=== PATIENT | female | born 1960 | race Caucasian/White ===

== ENCOUNTER 2020-03-10 14:41 | Inpatient (IN) | payer OTHER ==
--- NOTE | 2020-03-10 15:03 | PDOC ---
Rapid Medical Evaluation Chief Complaint: Urinary Problem Time Seen by Provider: 03/10/20 14:52 Medical Evaluation: Allergies Allergy/AdvReac Type Severity Reaction Status Date / Time morphine Allergy Severe RASH,HIVES Verified 08/12/15 15:41 Sulfa (Sulfonamide Allergy Verified 08/12/15 15:41 Antibiotics) hydromorphone HCl AdvReac Intermediate NAUSEA/Vomi Verified 08/12/15 16:31 [From Dilaudid] ting SNAPPLE Allergy Severe Hives,RASH, Uncoded 08/12/15 15:41 VOMITING 03/10/20 15:00 I have performed a brief in-person evaluation of this patient. The patient presents with a chief complaint of: h/o left breast CA , kidney stones, chronics back pain on percocets and flexiril and does not recall any other medication problem present with 3 days of b/l flank pain and fever x 3 days. pt also report intermittent SOB. Denies N/V,dizziness. Pertinent physical exam findings:b/l flanks pain. right CVAT. fever I have ordered the following: CBC, CMP, UA, spiral CT, sepsis labs The patient will proceed to the ED for further evaluation. Discharge Disposition - Diagnosis Flank pain, acute, Fever and chills - Discharge Dispostion Condition at time of disposition: Stable - Referrals - Patient Instructions - Post Discharge Activity
[2020-03-10 15:53] LABS: BASO % 0.4 % (0-2.0); EOS % 0.2 % (0-4.5); HEMATOCRIT 38.9 % (32.4-45.2); HEMOGLOBIN 12.3 GM/dL (10.7-15.3); LYMPH % 12.6 % (8-40); MCH 28.3 pg (25.7-33.7); MCHC 31.7 g/dl (32.0-36.0); MEAN CELL VOLUME 89.2 fl (80-96); MEAN PLT VOLUME 10.5 fl (7.5-11.1); MONO % 9.9 % (3.8-10.2); NEUT % 76.9 % (42.8-82.8); PLATELET COUNT 204 K/MM3 (134-434); RBC 4.36 M/mm3 (3.60-5.2); RDW 13.2 % (11.6-15.6); WHITE BLOOD COUNT 8.3 K/mm3 (4.0-10.0)
[2020-03-10] MEDS ORDERED: ACETAMINOPHEN 1000 MG/100 ML VIAL (NON FORMULARY) IVPB ONE (15:54)
[2020-03-10] MEDS ORDERED: SODIUM CHLORIDE 1,000 ML IV STA (15:55)
[2020-03-10] MEDS ORDERED: ACETAMINOPHEN INJECTION 100 ML IVPB ONE (15:56)
[2020-03-10 15:58] LABS: INR 1.04 (0.83-1.09); PROTHROMBIN TIME (PATIENT) 12.3 SEC (9.7-13.0)
[2020-03-10 16:02] LABS: ACTIVATED PTT 29.6 SECONDS (25.2-36.5)
[2020-03-10 16:10] LABS: ALBUMIN 3.4 g/dl (3.4-5.0); BILIRUBIN,TOTAL 0.4 mg/dL (0.2-1); BLOOD UREA NITROGEN 14.2 mg/dL (7-18); CALCIUM 8.9 mg/dL (8.5-10.1); CREATININE 0.8 mg/dL (0.55-1.3); POTASSIUM 4.4 mmol/L (3.5-5.1); TOT PROT 7.4 g/dl (6.4-8.2)
[2020-03-10 16:15] LABS: VENOUS BASE EXCESS 0.9 mmol/L (-2-2); VENOUS O2 SATURATION 29.5 % (70-80); VENOUS PCO2 45.8 mmHg (38-52); VENOUS PH 7.379 (7.310-7.410)
[2020-03-10 16:49] LABS: PH,URINE 5.5 (5.0-8.0); URINE APPEARANCE CLEAR; URINE BILIRUBIN NEGATIVE (NEGATIVE); URINE COLOR YELLOW; URINE GLUCOSE (UA) NEGATIVE (NEGATIVE); URINE KETONE NEGATIVE (NEGATIVE); URINE LEUK ESTERASE 2+ (NEGATIVE); URINE NITRITE NEGATIVE (NEGATIVE); URINE PROTEIN 1+ (NEGATIVE)
[2020-03-10] MEDS ORDERED: CEFTRIAXONE 1,000 MG in DEXTROSE 5%-WATER - 50 ML IVPB ONE (17:20)
--- NOTE | 2020-03-10 17:31 | PDOC ---
History of Present Illness - General Chief Complaint: Urinary Problem Stated Complaint: KIDNEY PAIN Time Seen by Provider: 03/10/20 14:52 - History of Present Illness Initial Comments: 59 YOF h/o breast cancer, multiple kidney stones, and chronic back pain presents with bilateral flank pain, CVA tenderness, fever, chills, and night sweats for 3 days duration. Patient reports that pain is primarily localized to left flank, 8/10 in intensity, aching/ dull in quality, radiates to RLQ during urination, and is not relieved by taking ibuprofen. Also reports that pain limits inspiration causing her some intermittent SOB. Last bowel movement was this AM. Able to produce urine. Denies blood in urine. Denies CP, N/V/D. Past History - Medical History Allergies/Adverse Reactions: Allergies Allergy/AdvReac Type Severity Reaction Status Date / Time morphine Allergy Severe RASH,HIVES Verified 03/10/20 15:00 Sulfa (Sulfonamide Allergy Verified 03/10/20 15:00 Antibiotics) hydromorphone HCl AdvReac Intermediate NAUSEA/Vomi Verified 03/10/20 15:00 [From Dilaudid] ting SNAPPLE Allergy Severe Hives,RASH, Uncoded 03/10/20 15:00 VOMITING Home Medications: Ambulatory Orders Cyclobenzaprine HCl [Flexeril -] 10 mg PO HS PRN 10/01/12 Oxycodone HCl/Acetaminophen [Percocet 5-325 mg Tablet] 1 - 2 combo PO Q4H PRN #20 tablet 12/09/13 Anemia: Yes (HAD BLOOD TRANSFUSION) Asthma: No Cancer: Yes (Lt breast (monitoring)) Cardiac Disorders: No CVA: No COPD: No CHF: No Dementia: No Diabetes: No GI Disorders: No Disorders: Yes (KIDNEY STONES) HTN: No Hypercholesterolemia: No Kidney Stones: Yes Liver Disease: No Seizures: No Thyroid Disease: No - Surgical History Abdominal Surgery: No Appendectomy: No Cardiac Surgery: No Cholecystectomy: No Lung Surgery: No Neurologic Surgery: No Orthopedic Surgery: Yes (LEFT KNEE SX 04/30/12) - Psycho-Social/Smoking History Smoking Status: No Smoking History: Never smoked Have you smoked in the past 12 months: No Number of Cigarettes Smoked Daily: 0 - Substance Abuse Hx (Audit-C & DAST Scrn) How often the patient has a drink containing alcohol: Never Score: In Men: 4 or > Positive; In Women: 3 or > Positive: 0 Screen Result (Pos requires Nsg. Audit-10AR): Negative In the last yr the pt used illegal drug/Rx for NonMed reason: No Score: Yes response is considered Positive: 0 Screen Result (Positive result requires Nsg. DAST-10): Negative Review of Systems - Review of Systems Constitutional: Yes: See HPI HEENTM: Yes: See HPI Respiratory: Yes: See HPI Cardiac (ROS): Yes: See HPI ABD/GI: Yes: See HPI : Yes: See HPI Musculoskeletal: Yes: See HPI Integumentary: Yes: See HPI Neurological: Yes: See HPI Endocrine: Yes: See HPI Hematologic/Lymphatic: Yes: See HPI *Physical Exam - Vital Signs Last Vital Signs Temp Pulse Resp BP Pulse Ox 101.3 F H 98 H 18 134/94 99 03/10/20 15:00 03/10/20 15:00 03/10/20 15:00 03/10/20 15:00 03/10/20 15:00 - Physical Exam General Appearance: Yes: Moderate Distress, Thin Respiratory/Chest: positive: Lungs Clear, Normal Breath Sounds Cardiovascular: positive: Regular Rhythm, Regular Rate, S1, S2 Gastrointestinal/Abdominal: positive: Normal Bowel Sounds, Tender, Guarding Musculoskeletal: positive: CVA Tenderness Integumentary: positive: Warm ED Treatment Course - LABORATORY CBC & Chemistry Diagram: 03/10/20 15:30 03/10/20 15:30 - ADDITIONAL ORDERS Additional order review: Laboratory Results 03/10/20 03/10/20 03/10/20 16:10 15:30 15:30 PT with INR INR PTT (Actin FS) VBG pH 7.379 POC VBG pCO2 45.8 POC VBG pO2 19.4 L VBG HCO3 26.4 VBG O2 Sat (Sridhar) 29.5 L VBG Base Excess 0.9 Sodium Potassium Chloride Carbon Dioxide Anion Gap BUN Creatinine Est GFR (CKD-EPI)AfAm Est GFR (CKD-EPI)NonAf Random Glucose Lactic Acid 0.8 Calcium Total Bilirubin AST ALT Alkaline Phosphatase Total Protein Albumin Urine Color Yellow Urine Appearance Clear Urine pH 5.5 Ur Specific [place] 1.013 Urine Protein 1+ H Urine Glucose (UA) Negative Urine Ketones Negative Urine Blood 2+ H Urine Nitrite Negative Urine Bilirubin Negative Urine Urobilinogen 1.0 Ur Leukocyte Esterase 2+ H 03/10/20 03/10/20 15:30 15:30 PT with INR 12.30 INR 1.04 PTT (Actin FS) 29.6 VBG pH POC VBG pCO2 POC VBG pO2 VBG HCO3 VBG O2 Sat (Sridhar) VBG Base Excess Sodium 135 L Potassium 4.4 Chloride 102 Carbon Dioxide 29 Anion Gap 4 L BUN 14.2 Creatinine 0.8 Est GFR (CKD-EPI)AfAm 94.19 Est GFR (CKD-EPI)NonAf 81.27 Random Glucose 104 Lactic Acid Calcium 8.9 Total Bilirubin 0.4 AST 18 ALT 22 Alkaline Phosphatase 93 Total Protein 7.4 Albumin 3.4 Urine Color Urine Appearance Urine pH Ur Specific [place] Urine Protein Urine Glucose (UA) Urine Ketones Urine Blood Urine Nitrite Urine Bilirubin Urine Urobilinogen Ur Leukocyte Esterase 03/10/20 15:30 RBC 4.36 MCV 89.2 MCHC 31.7 L RDW 13.2 MPV 10.5 Neutrophils % 76.9 Lymphocytes % 12.6 D Monocytes % 9.9 D Eosinophils % 0.2 Basophils % 0.4 - Medications Given in the ED: ED Medications Discontinued Medications Generic Name Dose Route Start Last Admin Trade Name Freq PRN Reason Stop Dose Admin Acetaminophen 1,000 mg 03/10/20 15:54 03/10/20 15:57 Ofirmev Injection - IVPB 03/10/20 15:55 1,000 mg ONCE ONE Administration Sodium Chloride 1,000 mls @ 1,000 mls/hr 03/10/20 15:55 03/10/20 15:57 Normal Saline - IV 03/10/20 16:54 1,000 mls/hr ASDIR STA Administration Medical Decision Making - Medical Decision Making This is a 59 YOF h/o Breast Ca, kidney stones, and chronic back pain presenting with bilateral flank pain, fever, chills and night sweats of 3 days duration. Patients was febrile to 101.3 w/ HR 98 on arrival. Exam notable for slightly rigid abdomen TTP, guarding, suprapubic tenderness, and bilateral CVA tenderness. Patient presents with 2 SIRS criteria (HR 98 and T 101.3). Vital Signs Temp Pulse Resp BP Pulse Ox 98.8 F 70 18 101/73 98 03/10/20 17:40 03/10/20 17:26 03/10/20 15:00 03/10/20 17:26 03/10/20 17:26 DDx Ibnlt: Presumptive ddx is pyelonephritis w/ w/o urosepsis. Differential incl udes kidney stones and appendicitis. Less concerned about SBO given still passing stool and gas, less concerned about MT given alternate diagnosis more likely. Plan: Ordered CBC, CMP, UA, CXR, CT abdomen, and blood cultures. Gave 1g tylenol, 1L fluids, and 1g ceftriaxone. Pain control pending CT results. Reassess: Labs were unremarkable. Patient has 2+ positive leuk esterase, lactate .8. CXR negative, CT revealing of small non obstructive left renal stones, no ureteral stones seen. Gave 15mgs Toradol. Dispo: Will admit patient to medicine for management of pyelonephritis + sepsis. Discharge - Discharge Information Problems reviewed: Yes Clinical Impression/Diagnosis: Flank pain, acute, Fever and chills, Pyelonephritis, Systemic inflammatory response syndrome (SIRS) Sepsis Qualifiers: Sepsis type: sepsis due to unspecified organism Sepsis acute organ dysfunction status: unspecified Qualified Code(s): A41.9 - Sepsis, unspecified organism Condition: Stable - Admission Yes - Follow up/Referral Referrals: Romario Hamilton MD [Primary Care Provider] - - Patient Discharge Instructions - Post Discharge Activity
[2020-03-10 17:35] LABS: URINE RBC 78.7 /uL (0-23.9); URINE WBC 327.1 /uL (0-25.8)
[2020-03-10 17:36] LABS: EPI CELLS 1.5 /uL (0-25.1); HYALINE CASTS 2.44 /uL (0-3.1); URINE BACTERIA 31618.4 /uL (0-1359)
[2020-03-10] MEDS ORDERED: KETOROLAC TROMETHAMINE 15 MG/ML VIAL IVPUSH ONE (17:49)
--- NOTE | 2020-03-10 17:58 | PDOC ---
Documentation entered by Luciano Cantu SCRIBE, acting as scribe for Sandra Carranza MD. Sandra Carranza MD: This documentation has been prepared by the Peter lopez Nirvannie, SCRIBE, under my direction and personally reviewed by me in its entirety. I confirm that the documentation accurately reflects all work, treatment, procedures, and medical decision making performed by me. Attending Attestation - Resident Resident Name: Antoni Moser - ED Attending Attestation I have performed the following: I have examined & evaluated the patient, The case was reviewed & discussed with the resident, I agree w/resident's findings & plan, Exceptions are as noted - HPI HPI: 03/10/20 17:35 The patient is a 59 year old female with a significant past medical history of left breast cancer, renal lithiasis, chronic back pain (on Percocet and Flexeril), and s/p uterine ablation who presents to the ED with 3 days of dysuria with associated 8/10 bilateral flank pain and fevers. Patient describes her flank pain as an achy, dull sensation worsening with inspiration and nausea without vomiting. She notes taking Ibuprofen for her symptoms, without relief, prompting her arrival to the ED. Patient was recently in physical rehab from Aug-Oct after a fall with hip dislocation. She denies any recent vomiting, or diarrhea. Allergies: As per nursing notes. Primary Care Physician: Dr. Joey Hamilton - Physicial Exam PE: 03/10/20 17:48 awake alert lungs clear bilat heart rrrno mrg abd soft right mid upper quad ttp, no rebound no guarding. left cva tenderenss. no suprapubic ttp. no rebound no guarding. ext wwp.. nuero alert oriented x 3. - Medical Decision Making 03/10/20 17:52 59 yo F with h/o chronic back pain breast ca, anemia, recent hip dislocation requiring rehab 08/2019, uterine ablation here with c/o fever x 3 days, back pain nausea. differential pyelo, uti, appy, bayron, viral syndrome. plan labs ivf tylenl for fever. ct renal stone protocol ordered r/o infected stone. ua ua positive for uti/ pyelo. given ceftriaxone, tylenoland toradol for pain. will admit. Discharge - Discharge Information Problems reviewed: Yes Clinical Impression/Diagnosis: Flank pain, acute, Fever and chills, Pyelonephritis Condition: Stable - Admission Yes - Follow up/Referral - Patient Discharge Instructions - Post Discharge Activity
[2020-03-10] MEDS ORDERED: KETOROLAC TROMETHAMINE 15 MG/ML VIAL ONE (18:01)
--- NOTE | 2020-03-10 20:37 | HP ---
Admitting History and Physical - Primary Care Physician PCP: Romario Hamilton - Admission Chief Complaint: Flank Pain, Fever History of Present Illness: This is a 59 y/o female with a PMHx of Renal Calculi (Lithotripsy), Anemia, Chronic Back Pain. Who presents to the ED with bilateral flank pain, subjective fever 101-103, diaphoresis x 2 days. Patient reports having dysuria last week, noting her urine was dark yellow. Patient reports having frequency. Patient denies chills, cough, SOB, dizziness, SARGENT, CP, palpitations, N/V/D, constipation, melena, hematochezia. Patient denies sick contacts or recent travel. History Source: Patient Limitations to Obtaining History: No Limitations - Past Medical History Renal/: Yes: Renal Calculi Heme/Onc: Yes: Anemia Musculoskeletal: Yes: Chronic low back pain - Smoking History Smoking history: Never smoked Have you smoked in the past 12 months: No Aproximately how many cigarettes per day: 0 - Alcohol/Substance Use Hx Alcohol Use: No History of Substance Use: reports: None - Social History Usual Living Arrangement: Yes: With Child (grandchildren) ADL: Independent History of Recent Travel: No Home Medications - Allergies Allergies/Adverse Reactions: Allergies Allergy/AdvReac Type Severity Reaction Status Date / Time morphine Allergy Severe RASH,HIVES Verified 03/10/20 15:00 Sulfa (Sulfonamide Allergy Verified 03/10/20 15:00 Antibiotics) hydromorphone HCl AdvReac Intermediate NAUSEA/Vomi Verified 03/10/20 15:00 [From Dilaudid] ting SNAPPLE Allergy Severe Hives,RASH, Uncoded 03/10/20 15:00 VOMITING - Home Medications Home Medications: Ambulatory Orders Cyclobenzaprine HCl [Flexeril -] 10 mg PO HS PRN 10/01/12 Oxycodone HCl/Acetaminophen [Percocet 5-325 mg Tablet] 1 - 2 combo PO Q4H PRN #20 tablet 12/09/13 Family Medical History Family Hx Cancer: Grandmother (maternal) (Breast), Mother (Breast), Sister (Breast) Other Family History: Aunt- Breast Ca Review of Systems - Review of Systems Constitutional: reports: Fever Eyes: reports: No Symptoms HENT: reports: No Symptoms Neck: reports: No Symptoms Cardiovascular: reports: No Symptoms Respiratory: reports: No Symptoms Gastrointestinal: reports: No Symptoms Genitourinary: reports: Burning, Dysuria, Flank Pain Breasts: reports: No Symptoms Reported Musculoskeletal: reports: Back Pain Integumentary: reports: No Symptoms Neurological: reports: No Symptoms Endocrine: reports: No Symptoms Hematology/Lymphatic: reports: No Symptoms Psychiatric: reports: No Symptoms Pain Intensity: 7 Physical Examination Vital Signs: Vital Signs Temperature 98.8 F 03/10/20 17:40 Pulse Rate 70 03/10/20 17:26 Respiratory Rate 18 03/10/20 15:00 Blood Pressure 101/73 03/10/20 17:26 O2 Sat by Pulse Oximetry (%) 98 03/10/20 17:26 Constitutional: Yes: Mild Distress, Thin Eyes: Yes: WNL, Conjunctiva Clear, EOM Intact, PERRL HENT: Yes: Other (Dry Mucous membranes) Neck: Yes: WNL, Supple, Trachea Midline Cardiovascular: Yes: Regular Rate and Rhythm, S1, S2 Respiratory: Yes: WNL, Regular, CTA Bilaterally Gastrointestinal: Yes: Normal Bowel Sounds, Soft, Tenderness ...Rectal Exam: Yes: Deferred Renal/: Yes: CVA Tenderness - Left (L>R), CVA Tenderness - Right Breast(s): Yes: WNL Musculoskeletal: Yes: Back Pain Extremities: Yes: WNL Edema: No Peripheral Pulses WNL: Yes Integumentary: Yes: WNL Neurological: Yes: WNL, Alert, Oriented, Cran Nerves II-XII Intact ...Motor Strength: WNL Psychiatric: Yes: WNL, Alert, Oriented Labs: CBC, BMP 03/10/20 15:30 03/10/20 15:30 Laboratory Results - last 24 hr 03/10/20 03/10/20 03/10/20 15:30 15:30 15:30 WBC 8.3 RBC 4.36 Hgb 12.3 Hct 38.9 MCV 89.2 MCH 28.3 MCHC 31.7 L RDW 13.2 Plt Count 204 MPV 10.5 Absolute Neuts (auto) 6.4 Neutrophils % 76.9 Lymphocytes % 12.6 D Monocytes % 9.9 D Eosinophils % 0.2 Basophils % 0.4 Nucleated RBC % 0 PT with INR 12.30 INR 1.04 PTT (Actin FS) 29.6 VBG pH POC VBG pCO2 POC VBG pO2 VBG HCO3 VBG O2 Sat (Sridhar) VBG Base Excess Sodium 135 L Potassium 4.4 Chloride 102 Carbon Dioxide 29 Anion Gap 4 L BUN 14.2 Creatinine 0.8 Est GFR (CKD-EPI)AfAm 94.19 Est GFR (CKD-EPI)NonAf 81.27 Random Glucose 104 Lactic Acid Calcium 8.9 Total Bilirubin 0.4 AST 18 ALT 22 Alkaline Phosphatase 93 Total Protein 7.4 Albumin 3.4 Urine Color Urine Appearance Urine pH Ur Specific [place] Urine Protein Urine Glucose (UA) Urine Ketones Urine Blood Urine Nitrite Urine Bilirubin Urine Urobilinogen Ur Leukocyte Esterase Urine WBC (Auto) Urine RBC (Auto) Urine Casts (Auto) U Epithel Cells (Auto) Urine Bacteria (Auto) 03/10/20 03/10/20 03/10/20 15:30 15:30 16:10 WBC RBC Hgb Hct MCV MCH MCHC RDW Plt Count MPV Absolute Neuts (auto) Neutrophils % Lymphocytes % Monocytes % Eosinophils % Basophils % Nucleated RBC % PT with INR INR PTT (Actin FS) VBG pH 7.379 POC VBG pCO2 45.8 POC VBG pO2 19.4 L VBG HCO3 26.4 VBG O2 Sat (Sridhar) 29.5 L VBG Base Excess 0.9 Sodium Potassium Chloride Carbon Dioxide Anion Gap BUN Creatinine Est GFR (CKD-EPI)AfAm Est GFR (CKD-EPI)NonAf Random Glucose Lactic Acid 0.8 Calcium Total Bilirubin AST ALT Alkaline Phosphatase Total Protein Albumin Urine Color Yellow Urine Appearance Clear Urine pH 5.5 Ur Specific [place] 1.013 Urine Protein 1+ H Urine Glucose (UA) Negative Urine Ketones Negative Urine Blood 2+ H Urine Nitrite Negative Urine Bilirubin Negative Urine Urobilinogen 1.0 Ur Leukocyte Esterase 2+ H Urine WBC (Auto) 327.1 Urine RBC (Auto) 78.7 Urine Casts (Auto) 2.44 U Epithel Cells (Auto) 1.5 Urine Bacteria (Auto) 06846.4 Intake & Output 03/08/20 03/09/20 03/10/20 03/11/20 23:59 23:59 23:59 23:59 Intake Total 300 Balance 300 Weight 50 kg Imaging - Results Chest X-ray: Image Reviewed Cat Scan: Report Reviewed, Image Reviewed EKG: Image Reviewed Problem List - Problems (1) Sepsis Assessment/Plan: Likely secondary to UTI vs Pyelonephritis UA- +2 blood, +2 leukocyte esterase, 327 WBC, 22983 Bacteria Urine Culture-pending Blood Culture-pending T Max 101.3 qSOFA 0, not high risk Ceftriaxone given in ED Will continue with Levofloxacin (? PCN allergy, per pt) Gentle IVF Monitor CBC, CMP Monitor vitals Maintain MAP> 65 Code(s): A41.9 - SEPSIS, UNSPECIFIED ORGANISM Qualifiers: Sepsis type: sepsis due to unspecified organism Sepsis acute organ dysfunction status: unspecified Qualified Code(s): A41.9 - Sepsis, unspecified organism (2) Acute pyelonephritis Assessment/Plan: UA- +2 blood, +2 leukocyte esterase, 327 WBC, 19828 Bacteria Urine Culture-pending Spiral CT reviewed- small nonobstructing left renal stones, nonobstructing stone lower pole R-kidney, no hydronephrosis Ceftriaxone given in ED Will start Levofloxacin in am IVF Tylenol prn Consider Urology consult if condition worsens Monitor CBC, CMP Monitor vitals Code(s): N10 - ACUTE PYELONEPHRITIS (3) Chronic back pain Assessment/Plan: Tylenol prn Code(s): M54.9 - DORSALGIA, UNSPECIFIED; G89.29 - OTHER CHRONIC PAIN (4) Person under investigation for COVID-19 Assessment/Plan: [employer]ULTANT 0, low risk COVID PCR-pending Isolation Precautions Code(s): Z20.828 - CONTACT W AND EXPOSURE TO OTH VIRAL COMMUNICABLE DISEASES Assessment/Plan This is a 59 y/o female with a PMHx of Renal Calculi (Lithotripsy), Anemia, Chronic Back Pain. Admitted for Sepsis, UTI, Acute Pyelonephritis for further evaluation of their emergent condition. Plan: See Problem List FEN PO fluids as tolerated Replete lytes prn Regular Diet DVT ppx OOB SCDs Lovenox SQ Dispo: Requires Inpatient Care Visit type - Emergency Visit Emergency Visit: Yes ED Registration Date: 03/10/20 Care time: The patient presented to the Emergency Department on the above date and was hospitalized for further evaluation of their emergent condition. - New Patient This patient is new to me today: Yes Date on this admission: 03/10/20 - Critical Care Critical Care patient: No
[2020-03-10] MEDS: SODIUM CHLORIDE 1,000 ML IV SCH (21:17)
[2020-03-10] MEDS ORDERED: ACETAMINOPHEN 325 MG TABLET (FP) PO PRN (22:00)
[2020-03-11] MEDS ORDERED: ACETAMINOPHEN 325 MG TABLET (FP) ONE (02:35)
[2020-03-11 07:51] LABS: BASO % 0.4 % (0-2.0); EOS % 0.5 % (0-4.5); HEMATOCRIT 35.9 % (32.4-45.2); HEMOGLOBIN 11.2 GM/dL (10.7-15.3); LYMPH % 16.2 % (8-40); MCH 28.2 pg (25.7-33.7); MCHC 31.3 g/dl (32.0-36.0); MEAN CELL VOLUME 90.1 fl (80-96); MONO % 9.9 % (3.8-10.2); PLATELET COUNT 193 K/MM3 (134-434); RBC 3.99 M/mm3 (3.60-5.2); WHITE BLOOD COUNT 8.2 K/mm3 (4.0-10.0)
[2020-03-11 08:08] LABS: BLOOD UREA NITROGEN 13.4 mg/dL (7-18); CALCIUM 8.5 mg/dL (8.5-10.1); CREATININE 0.7 mg/dL (0.55-1.3); POTASSIUM 4.9 mmol/L (3.5-5.1)
[2020-03-11] MEDS ORDERED: CEFTRIAXONE 1 GM in DEXTROSE 5%-WATER - 50 ML IVPB SCH (10:00)
[2020-03-11] MEDS ORDERED: ENOXAPARIN NA (PORCINE) 40 MG/0.4 ML DISP.SYRIN SQ ONE (10:27)
[2020-03-11] MEDS: ENOXAPARIN NA (PORCINE) 40 MG/0.4 ML DISP.SYRIN SQ SCH (10:36)
[2020-03-11] MEDS ORDERED: cefTRIAXone SODIUM 1 GM VIAL ONE (13:15)
[2020-03-11] MEDS: CEFTRIAXONE 1 GM in DEXTROSE 5%-WATER - 50 ML IVPB SCH (13:15)
--- NOTE | 2020-03-11 14:03 | EKG ---
Test Reason : Blood Pressure : / mmHG Vent. Rate : 063 BPM Atrial Rate : 063 BPM P-R Int : 120 ms QRS Dur : 090 ms QT Int : 424 ms P-R-T Axes : 068 068 035 degrees QTc Int : 433 ms NORMAL SINUS RHYTHM NORMAL ECG WHEN COMPARED WITH ECG OF 23-JUL-2010 11:43, NO SIGNIFICANT CHANGE WAS FOUND Confirmed by GERMAN JERRY MD ([id number]) on 03/11/2020 2:03:23 PM Referred By: Confirmed By:GERMAN JERRY MD
[2020-03-11 15:01] VITALS: BMI 20.5
[2020-03-12] MEDS ORDERED: ACETAMINOPHEN 160 MG/5 ML *Children Solution PO PRN (00:21)
[2020-03-12] MEDS ORDERED: ACETAMINOPHEN 650 MG/20.3 ML ORAL SOLUTION (CUPS) PO PRN (00:21)
[2020-03-12] MEDS: SODIUM CHLORIDE 1,000 ML IV SCH (06:55)
[2020-03-12] MEDS ORDERED: DEXTROSE 5%-WATER - 50 ML IVPB ONE (09:05)
[2020-03-12] MEDS ORDERED: cefTRIAXone SODIUM 1 GM VIAL ONE (09:05)
[2020-03-12] MEDS: CEFTRIAXONE 1 GM in DEXTROSE 5%-WATER - 50 ML IVPB SCH (09:37)
[2020-03-12] MEDS: ENOXAPARIN NA (PORCINE) 40 MG/0.4 ML DISP.SYRIN SQ SCH (09:43)
[2020-03-12] MEDS ORDERED: CYCLOBENZAPRINE HCL 10 MG TABLET (FP) PO PRN (13:10)
--- NOTE | 2020-03-12 14:10 | PN ---
Physical Exam: SUBJECTIVE: Patient seen and examined at bedside this morning. No acute events overnight. Patient reports back pain, more on the left flank, radiating down to the groin. patient also reports urinary frequency, but denies hematuria and burning. Denies fevers, chills, headache, nausea, vomiting, chest pain, SOB, diarrhea, or any new concerns noted. OBJECTIVE: Vital Signs Temperature 98.6 F 03/12/20 09:44 Pulse Rate 68 03/12/20 09:44 Respiratory Rate 20 03/12/20 09:44 Blood Pressure 107/65 03/12/20 09:44 O2 Sat by Pulse Oximetry (%) 97 03/12/20 07:53 GENERAL: The patient is awake, alert, and fully oriented, in no acute distress. HEAD: Normal with no signs of trauma. EYES: PERRLA, EOMI, sclera anicteric, conjunctiva clear. NECK: supple. LUNGS: Breath sounds equal, clear to auscultation bilaterally HEART: Regular rate and rhythm, S1, S2 ABDOMEN: Soft, nontender, nondistended, normoactive bowel sounds EXTREMITIES: 2+ pulses, warm, well-perfused, no edema. SKIN: Warm, dry, normal turgor Active Medications Generic Name Dose Route Start Last Admin Trade Name Freq PRN Reason Stop Dose Admin Acetaminophen 650 mg 03/12/20 00:21 Tylenol Oral Solution - PO Q6H PRN PAIN LEVEL 7 - 10 Cyclobenzaprine HCl 10 mg 03/12/20 13:10 Flexeril - PO TID PRN MUSCLE SPASMS Enoxaparin Sodium 40 mg 03/11/20 10:00 03/12/20 09:43 Lovenox - SQ Not Given DAILY NICOLE Sodium Chloride 1,000 mls @ 75 mls/hr 03/10/20 20:30 03/12/20 06:55 Normal Saline - IV 75 mls/hr ASDIR NICOLE Administration Ceftriaxone Sodium 1 gm/ 50 mls @ 100 mls/hr 03/11/20 13:00 03/12/20 09:37 Dextrose IVPB 100 mls/hr DAILY NICOLE Administration Protocol ASSESSMENT/PLAN: Patient is a 59 y/o female with a PMHx of Renal Calculi (Lithotripsy), Anemia, Chronic Back Pain, presented to the ED with bilateral flank pain, subjective fevers 101-103, and diaphoresis x 2 days. Patient admitted for sepsis 2/2 UTI. #Sepsis 2/2 UTI -Likely secondary to UTI vs Pyelonephritis -UA- +2 blood, +2 leukocyte esterase, 327 WBC, 04154 Bacteria -UCx -LFGNB -BCx - no growth to date -Spiral CT reviewed- small nonobstructing left renal stones, nonobstructing stone lower pole R-kidney, no hydronephrosis -Continue Ceftriaxone 1gm daily #Polyuria -may be 2/2 UTI, ?bladder incontinence -Urology (Dr. Hamilton) consulted #Chronic back pain -Med rec done, patient not on any percocet -Flexeril to 10mg TID prn -Cymbalta #FEN -Not on any standing fluids -Electrolytes wnl, routine bmp monitoring -Regular diet #Prophylaxis -Lovenox 40mg sq daily #Disposition -full code -admit to med surg Visit type - Emergency Visit Emergency Visit: Yes ED Registration Date: 03/10/20 Care time: The patient presented to the Emergency Department on the above date and was hospitalized for further evaluation of their emergent condition. - New Patient This patient is new to me today: Yes Date on this admission: 03/12/20 - Critical Care Critical Care patient: No ATTENDING PHYSICIAN STATEMENT I saw and evaluated the patient. I reviewed the resident's note and discussed the case with the resident. I agree with the resident's findings and plan as documented. SUBJECTIVE: OBJECTIVE: ASSESSMENT AND PLAN:
[2020-03-12 14:36] LABS: BASO % 0.3 % (0-2.0); EOS % 0.8 % (0-4.5); HEMATOCRIT 38.6 % (32.4-45.2); LYMPH % 23.3 % (8-40); MCH 27.9 pg (25.7-33.7); MCHC 31.2 g/dl (32.0-36.0); MEAN CELL VOLUME 89.5 fl (80-96); MEAN PLT VOLUME 10.6 fl (7.5-11.1); MONO % 9.8 % (3.8-10.2); NEUT % 65.8 % (42.8-82.8); PLATELET COUNT 261 K/MM3 (134-434); RBC 4.31 M/mm3 (3.60-5.2); RDW 12.9 % (11.6-15.6); WHITE BLOOD COUNT 6.2 K/mm3 (4.0-10.0)
[2020-03-12 15:02] LABS: ALBUMIN 3.1 g/dl (3.4-5.0); BILIRUBIN,TOTAL 0.2 mg/dL (0.2-1); BLOOD UREA NITROGEN 10.4 mg/dL (7-18); CALCIUM 8.8 mg/dL (8.5-10.1); CREATININE 0.7 mg/dL (0.55-1.3); POTASSIUM 4.8 mmol/L (3.5-5.1); TOT PROT 7.2 g/dl (6.4-8.2)
--- NOTE | 2020-03-12 17:20 | PN ---
Physical Exam: SUBJECTIVE: Patient seen and examined at bedside, admitted for UTI, endorses lower pelvic pain/pressure. Has h/o multiple UTIs/allergies/chronic pain. VSS. OBJECTIVE: Vital Signs Period Temp Pulse Resp BP Sys/Foster Pulse Ox Last 24 Hr 97.7 F-99.2 F 65-75 18-20 107-126/64-67 97-100 GENERAL: The patient is awake, alert, and fully oriented, in no acute distress. HEAD: Normal with no signs of trauma. EYES: PERRLA, EOMI, sclera anicteric, conjunctiva clear. NECK: supple. LUNGS: Breath sounds equal, clear to auscultation bilaterally HEART: Regular rate and rhythm, S1, S2 ABDOMEN: Soft, nontender, nondistended, normoactive bowel sounds EXTREMITIES: 2+ pulses, warm, well-perfused, no edema. SKIN: Warm, dry, normal turgor d Laboratory Results - last 24 hr 03/10/20 03/12/20 03/12/20 15:30 13:00 13:00 WBC 6.2 RBC 4.31 Hgb 12.0 Hct 38.6 MCV 89.5 MCH 27.9 MCHC 31.2 L RDW 12.9 Plt Count 261 D MPV 10.6 Absolute Neuts (auto) 4.1 Neutrophils % 65.8 Lymphocytes % 23.3 D Monocytes % 9.8 Eosinophils % 0.8 Basophils % 0.3 Nucleated RBC % 0 Sodium 140 Potassium 4.8 Chloride 105 Carbon Dioxide 28 Anion Gap 7 L BUN 10.4 Creatinine 0.7 Est GFR (CKD-EPI)AfAm 110.69 Est GFR (CKD-EPI)NonAf 95.50 Random Glucose 91 Calcium 8.8 Total Bilirubin 0.2 AST 16 ALT 22 Alkaline Phosphatase 93 Total Protein 7.2 Albumin 3.1 L COVID-19 (GALDINO) Not detected Active Medications Generic Name Dose Route Start Last Admin Trade Name Freq PRN Reason Stop Dose Admin Acetaminophen 650 mg 03/12/20 00:21 Tylenol Oral Solution - PO Q6H PRN PAIN LEVEL 7 - 10 Cyclobenzaprine HCl 10 mg 03/12/20 13:10 Flexeril - PO TID PRN MUSCLE SPASMS Enoxaparin Sodium 40 mg 03/11/20 10:00 03/12/20 09:43 Lovenox - SQ Not Given DAILY [facility] Ceftriaxone Sodium 1 gm/ 50 mls @ 100 mls/hr 03/11/20 13:00 03/12/20 09:37 Dextrose IVPB 100 mls/hr DAILY NICOLE Administration Protocol ASSESSMENT/PLAN: 59 F Sepsis 2/2 urinary source Non-obstructing renal Calculi (h/o Lithotripsy) Anemia Chronic Back Pain ?Opioid dependence Plan: Cont. abx w/ Ceftriaxone, follow urine/blood cx Flexeril/Tylenol for pain control, wean off opioids d/t ileus and possible abuse Aggressive IVF urology follow up w/ Dr. Shaunna Hamilton DVT ppx: Lovenox SC Visit type - Emergency Visit Emergency Visit: Yes ED Registration Date: 03/10/20 Care time: The patient presented to the Emergency Department on the above date and was hospitalized for further evaluation of their emergent condition. - New Patient This patient is new to me today: Yes Date on this admission: 03/12/20 - Critical Care Critical Care patient: No - Discharge Referral Referred to [facility] Med P.C.: No
--- NOTE | 2020-03-12 17:23 | PN ---
Teaching Attending Note Name of Resident: Rubi Vázquez ATTENDING PHYSICIAN STATEMENT I saw and evaluated the patient. I reviewed the resident's note and discussed the case with the resident. I agree with the resident's findings and plan as documented. SUBJECTIVE: Patient seen and examined at bedside, admitted for UTI, endorses lower pelvic pain/pressure. Has h/o multiple UTIs/allergies/chronic pain. VSS. OBJECTIVE: GENERAL: The patient is awake, alert, and fully oriented, in no acute distress. HEAD: Normal with no signs of trauma. EYES: PERRLA, EOMI, sclera anicteric, conjunctiva clear. NECK: supple. LUNGS: Breath sounds equal, clear to auscultation bilaterally HEART: Regular rate and rhythm, S1, S2 ABDOMEN: Soft, nontender, nondistended, normoactive bowel sounds EXTREMITIES: 2+ pulses, warm, well-perfused, no edema. SKIN: Warm, dry, normal turgor Vital Signs - 24 hr 03/11/20 03/12/20 03/12/20 22:00 07:32 07:53 Temperature 98 F Pulse Rate 65 Respiratory 18 18 Rate Blood Pressure 115/67 O2 Sat by Pulse 100 97 Oximetry (%) 03/12/20 03/12/20 09:44 14:00 Temperature 98.6 F 97.7 F Pulse Rate 68 75 Respiratory 20 20 Rate Blood Pressure 107/65 126/65 O2 Sat by Pulse Oximetry (%) Microbiology 03/10/20 15:30 Blood - Peripheral Venous Blood Culture - Preliminary NO GROWTH OBTAINED AFTER 48 HOURS, INCUBATION TO CON TINUE FOR 3 DAYS. 03/10/20 15:45 Blood - Peripheral Venous Blood Culture - Preliminary NO GROWTH OBTAINED AFTER 48 HOURS, INCUBATION TO CONTINUE FOR 3 DAYS. 03/10/20 16:10 Urine - Urine Clean Catch Urine Culture - Preliminary Lactose Fermenting Neg Bacilli Laboratory Results - last 24 hr 03/10/20 03/12/20 03/12/20 15:30 13:00 13:00 WBC 6.2 RBC 4.31 Hgb 12.0 Hct 38.6 MCV 89.5 MCH 27.9 MCHC 31.2 L RDW 12.9 Plt Count 261 D MPV 10.6 Absolute Neuts (auto) 4.1 Neutrophils % 65.8 Lymphocytes % 23.3 D Monocytes % 9.8 Eosinophils % 0.8 Basophils % 0.3 Nucleated RBC % 0 Sodium 140 Potassium 4.8 Chloride 105 Carbon Dioxide 28 Anion Gap 7 L BUN 10.4 Creatinine 0.7 Est GFR (CKD-EPI)AfAm 110.69 Est GFR (CKD-EPI)NonAf 95.50 Random Glucose 91 Calcium 8.8 Total Bilirubin 0.2 AST 16 ALT 22 Alkaline Phosphatase 93 Total Protein 7.2 Albumin 3.1 L COVID-19 (GALDINO) Not detected Home Medications Medication Instructions Recorded Cyclobenzaprine HCl [Flexeril -] 10 mg PO HS PRN 10/01/12 Oxycodone HCl/Acetaminophen 1 - 2 combo PO Q4H PRN #20 tablet 12/09/13 [Percocet 5-325 mg Tablet] Albuterol Sulfate [Albuterol 8.5 gm Q6H PRN 03/12/20 Sulfate Hfa] Current Medications Generic Name Dose Route Start Last Admin Trade Name Freq PRN Reason Stop Dose Admin Acetaminophen 650 mg 03/12/20 00:21 Tylenol Oral Solution - PO Q6H PRN PAIN LEVEL 7 - 10 Cyclobenzaprine HCl 10 mg 03/12/20 13:10 Flexeril - PO TID PRN MUSCLE SPASMS Enoxaparin Sodium 40 mg 03/11/20 10:00 03/12/20 09:43 Lovenox - SQ Not Given DAILY [facility] Ceftriaxone Sodium 1 gm/ 50 mls @ 100 mls/hr 03/11/20 13:00 03/12/20 09:37 Dextrose IVPB 100 mls/hr DAILY NICOLE Administration Protocol ASSESSMENT AND PLAN: 59 F Sepsis 2/2 urinary source Non-obstructing renal Calculi (h/o Lithotripsy) Anemia Chronic Back Pain ?Opioid dependence COVID negative Plan: Cont. abx w/ Ceftriaxone, blood cx negative, Urine cx w/ GNB likely E. coli Flexeril/Tylenol for pain control, wean off opioids d/t ileus and possible abuse PT evaluation Supplement bowel regimen Aggressive IVF Urology follow up w/ Dr. Shaunna Hamilton DVT ppx: Lovenox SC
[2020-03-12] MEDS ORDERED: ALBUTEROL SO4 HFA INHALER IH PRN (17:43)
[2020-03-12] MEDS: POLYETHYLENE GLYCOL 3350 119 GM BTL PO SCH (17:58)
[2020-03-12] MEDS: DOCUSATE SODIUM 100 MG CAPSULE (FP) PO SCH (18:01)
[2020-03-12] MEDS: DULoxetine HCL 20 MG CAPSULE.DR PO SCH ×2 (21:20→23:44)
[2020-03-12] MEDS ORDERED: SENNOSIDES 8.6MG TABLET (FP) PO SCH (22:00)
--- NOTE | 2020-03-13 00:20 | CONS ---
DATE OF CONSULTATION: DATE OF DICTATION: 03/12/2020 HISTORY OF PRESENT ILLNESS: The patient is a 59-year-old female admitted via the emergency room on March 10, 2020, complaining of dysuria, frequency, flank pain and suprapubic pain. She does have history of right nephrolithiasis. She is status post a right extracorporeal shockwave lithotripsy recently. She also has history of anemia. She also complains of chronic low back pain. A sonogram in the office revealed some small nonobstructing gravel in the right kidney. Urine cultures were negative at the time. She denies any tobacco use or ethanolism. She denies any recent travel. She does live with her grandchildren. She is on multiple medications but she is allergic to MORPHINE, BACTRIM, and SNAPPLE SOFT DRINK. She does take Flexeril daily for her chronic back pain as well as Percocet on a p.r.n. basis. Presently the patient's temperature is 98, blood pressure 100/73, pulse oximetry 98. She appears to be oriented, in mild distress. Her abdomen is soft. There is some bilateral CVA tenderness. Extremities reveal full range of motion. There was no cyanosis, clubbing, or edema. Her white count was 8.3, hemoglobin and hematocrit were 12.8 over 39.9, platelets were 208. BUN, creatinine were 14.2/0.8. The patient's urine was heme positive. CT scan of the abdomen and pelvis revealed a 3-mm, nonobstructing right renal stone. IMPRESSION: The impression at present is urinary tract infection, hematuria, temperatures of 101.3. Will recommend a urine culture and sensitivity. Will continue with broad-spectrum antibiotics. Will strain urine. Patient will undergo a stone workup including a 24-hour urine collection as an outpatient. Will follow with you. TALISHA FREEMAN M.D. [id number]
[2020-03-13] MEDS ORDERED: cefTRIAXone SODIUM 1 GM VIAL ONE (08:32)
[2020-03-13 08:33] LABS: BASO % 0.6 % (0-2.0); EOS % 1.9 % (0-4.5); HEMATOCRIT 34.8 % (32.4-45.2); HEMOGLOBIN 10.8 GM/dL (10.7-15.3); MCH 27.7 pg (25.7-33.7); MCHC 30.9 g/dl (32.0-36.0); MEAN CELL VOLUME 89.6 fl (80-96); MEAN PLT VOLUME 10.2 fl (7.5-11.1); MONO % 12.1 % (3.8-10.2); NEUT % 46.4 % (42.8-82.8); PLATELET COUNT 245 K/MM3 (134-434); RBC 3.89 M/mm3 (3.60-5.2); WHITE BLOOD COUNT 4.4 K/mm3 (4.0-10.0)
[2020-03-13] MEDS ORDERED: DEXTROSE 5%-WATER - 50 ML IVPB ONE (08:33)
[2020-03-13 08:55] LABS: BLOOD UREA NITROGEN 10.6 mg/dL (7-18); CALCIUM 8.8 mg/dL (8.5-10.1); CREATININE 0.6 mg/dL (0.55-1.3); MAGNESIUM 2.1 mg/dL (1.8-2.4); POTASSIUM 4.8 mmol/L (3.5-5.1)
[2020-03-13] MEDS: ENOXAPARIN NA (PORCINE) 40 MG/0.4 ML DISP.SYRIN SQ SCH (09:15)
[2020-03-13] MEDS: DOCUSATE SODIUM 100 MG CAPSULE (FP) PO SCH (09:15)
[2020-03-13] MEDS: DULoxetine HCL 20 MG CAPSULE.DR PO SCH (09:15)
[2020-03-13] MEDS: POLYETHYLENE GLYCOL 3350 119 GM BTL PO SCH (09:16)
[2020-03-13] MEDS: CEFTRIAXONE 1 GM in DEXTROSE 5%-WATER - 50 ML IVPB SCH (09:18)
--- NOTE | 2020-03-13 09:39 | PN ---
Teaching Attending Note Name of Resident: Rubi Vázquez ATTENDING PHYSICIAN STATEMENT I saw and evaluated the patient. I reviewed the resident's note and discussed the case with the resident. I agree with the resident's findings and plan as documented. SUBJECTIVE: Comfortable remained afebrile OBJECTIVE: Vital Signs Temperature 98.4 F 03/13/20 07:00 Pulse Rate 63 03/13/20 07:00 Respiratory Rate 18 03/13/20 07:54 Blood Pressure 100/67 03/13/20 07:00 O2 Sat by Pulse Oximetry (%) 96 03/13/20 07:54 General: Elderly woman, comfortable, not in distress HEENT mucous membranes moist, no anemia, no jaundice, PERRLA, no nystagmus Neck: No JVD, supple, no bruit, thyroid palpably normal, normal carotid pulsations. Chest: Nontender, clear to auscultation bilaterally/bilateral wheezing/bilateral basal rales. CVS: S1-S2 regular/irregular no murmur/gallop/rub Abdomen: Nondistended, soft, bowel sounds present. Extremities: No edema., No Calf tenderness, pulses present SHIRT TURNER: AO X3 , no gross motor sensory deficit CBC, BMP 03/13/20 07:40 03/13/20 07:40 Active Medications Acetaminophen (Tylenol Oral Solution -) 650 mg PO Q6H PRN PRN Reason: PAIN LEVEL 7 - 10 Last Admin: 03/13/20 08:37 Dose: 650 mg Documented by: Albuterol Sulfate (Ventolin Hfa Inhaler -) 2 puff IH Q6H PRN PRN Reason: ASTHMA Cyclobenzaprine HCl (Flexeril -) 10 mg PO TID PRN PRN Reason: MUSCLE SPASMS Docusate Sodium (Colace -) 100 mg PO DAILY [facility] Last Admin: 03/13/20 09:15 Dose: Not Given Documented by: Duloxetine HCl (Cymbalta -) 20 mg PO BID [facility] Last Admin: 03/13/20 09:15 Dose: Not Given Documented by: Enoxaparin Sodium (Lovenox -) 40 mg SQ DAILY [facility] Last Admin: 03/13/20 09:15 Dose: Not Given Documented by: Ceftriaxone Sodium 1 gm/ (Dextrose) 50 mls @ 100 mls/hr IVPB DAILY [facility]; Protocol Last Admin: 03/13/20 09:18 Dose: 100 mls/hr Documented by: Polyethylene Glycol (Miralax (For Daily Use) -) 17 gm PO DAILY [facility] Last Admin: 03/13/20 09:16 Dose: Not Given Documented by: Shannan (Senna -) 1 tab PO HS [facility] Last Admin: 03/12/20 21:21 Dose: Not Given Documented by: ASSESSMENT AND PLAN: 59-year-old female history of chronic back pain, asthma presents with UTI, urine culture grew pansensitive E. coli, CT abdomen shows punctate calculi nonobstructing. 1. UTI: Received IV ceftriaxone can be switched to Ceftin for pansensitive E. coli for total 10 days 2. Dehydration: Corrected 3. Fibromyalgia continue Cymbalta and Flexeril 4. Asthma: Continue albuterol 5. Renal calculi: Nonobstructive follow-up as an outpatient increase p.o. hydration. Switch to p.o. Ceftin for 10 days follow-up with PCP and as an outpatient patient can be discharged home.
--- NOTE | 2020-03-13 15:06 | DS ---
Physical Exam: SUBJECTIVE: Patient seen and examined at bedside this morning. No acute events overnight. OBJECTIVE: Vital Signs Temperature 98.9 F 03/13/20 09:56 Pulse Rate 61 03/13/20 09:56 Respiratory Rate 20 03/13/20 09:56 Blood Pressure 98/56 L 03/13/20 09:56 O2 Sat by Pulse Oximetry (%) 96 03/13/20 07:54 PHYSICAL EXAM GENERAL: The patient is awake, alert, and fully oriented, in no acute distress. HEAD: Normal with no signs of trauma. EYES: PERRLA, EOMI, sclera anicteric, conjunctiva clear. NECK: supple. LUNGS: Breath sounds equal, clear to auscultation bilaterally HEART: Regular rate and rhythm, S1, S2 ABDOMEN: Soft, nontender, nondistended, normoactive bowel sounds EXTREMITIES: 2+ pulses, warm, well-perfused, no edema. SKIN: Warm, dry, normal turgor LABS Laboratory Results - last 24 hr 03/10/20 03/12/20 03/13/20 15:30 13:00 07:40 WBC 4.4 RBC 3.89 Hgb 10.8 Hct 34.8 MCV 89.6 MCH 27.7 MCHC 30.9 L RDW 13.0 Plt Count 245 MPV 10.2 Absolute Neuts (auto) 2.0 Neutrophils % 46.4 D Lymphocytes % 39.0 D Monocytes % 12.1 H Eosinophils % 1.9 D Basophils % 0.6 Nucleated RBC % 0 Sodium Potassium Chloride Carbon Dioxide Anion Gap BUN Creatinine Est GFR (CKD-EPI)AfAm Est GFR (CKD-EPI)NonAf Random Glucose Calcium Magnesium ALT 22 COVID-19 (GALDINO) Not detected 03/13/20 07:40 WBC RBC Hgb Hct MCV MCH MCHC RDW Plt Count MPV Absolute Neuts (auto) Neutrophils % Lymphocytes % Monocytes % Eosinophils % Basophils % Nucleated RBC % Sodium 144 Potassium 4.8 Chloride 111 H Carbon Dioxide 28 Anion Gap 5 L BUN 10.6 Creatinine 0.6 Est GFR (CKD-EPI)AfAm 116.45 Est GFR (CKD-EPI)NonAf 100.47 Random Glucose 90 Calcium 8.8 Magnesium 2.1 ALT COVID-19 (GALDINO) HOSPITAL COURSE: Date of Admission:03/10/20 Date of Discharge: 03/13/20 Patient is a 59 y/o female with a PMHx of Renal Calculi (Lithotripsy), Anemia, Chronic Back Pain, presented to the ED with bilateral flank pain, subjective fevers 101-103, and diaphoresis x 2 days. Patient admitted for sepsis 2/2 UTI. Patient was started on IV Ceftriaxone. Urine culture revealed hollis-sensitive E.coli. Patient was also evaluated by urology and recommended to continue UTI treatment and follow up at the clinic for further work up of kidney stones. Patient continued to improved throughout hospital stay and was discharged with PO Keflex (patient prefers liquid solution) and to follow up with PCP and urologist. Minutes to complete discharge: 36 Discharge Summary Problems reviewed: Yes Reason For Visit: (SIRS), ACUTE FLANK PAIN,CALCULUS OF KIDNEY,SEPSIS Current Active Problems Acute pyelonephritis (Acute) Chronic back pain (Acute) Fever and chills (Acute) Flank pain, acute (Acute) Person under investigation for COVID-19 (Acute) Pyelonephritis (Acute) Sepsis (Acute) Systemic inflammatory response syndrome (SIRS) (Acute) Condition: Stable - Instructions Diet, Activity, Other Instructions: Your visit You were admitted to the hospital because you had fever and back pain. You were found to have a urinary tract infection. You were initially treated with IV antibiotics. You are now stable for discharge to complete antibiotics at home for 10 more days. Please also follow up with Dr. Saray Hamilton for further work up of the kidney stone. A referral has been provided. Medications Please take the following medications as prescribed: 1. Keflex liquid solution, 10mL three times a day for 10 days. Please continue your other home medications. Follow up Please follow up with your primary care doctor (Dr. Elle Hamilton) in 1-2 weeks. Please follow up with the urologist (Dr. Shaunna Hamilton) in 1-2 weeks. Additional info Please call 911 or go to the ED if with any worsening fever, chills, headache, dizziness, chest pain, shortness of breath, belly pain, diarrhea, urinary symptoms or any new concerns noted. Referrals: Romario Hamilton MD [Primary Care Provider] - Saray Hamilton MD [Staff Physician] - Disposition: HOME - Home Medications Comprehensive Discharge Medication List: Ambulatory Orders Cyclobenzaprine HCl [Flexeril -] 10 mg PO HS PRN 10/01/12 Albuterol Sulfate [Albuterol Sulfate Hfa] 8.5 gm Q6H PRN 03/12/20 Duloxetine HCl [Cymbalta] 20 mg PO BID 03/12/20 Cephalexin [Keflex *Suspension*] 10 ml PO TID 10 Days #1 bottle 03/13/20 This patient is new to me today: No Emergency Visit: Yes ED Registration Date: 03/10/20 Care time: The patient presented to the Emergency Department on the above date and was hospitalized for further evaluation of their emergent condition. Critical Care patient: No - Discharge Referral Referred to [facility] Med P.C.: No ATTENDING PHYSICIAN STATEMENT I saw and evaluated the patient. I reviewed the resident's note and discussed the case with the resident. I agree with the resident's findings and plan as documented. SUBJECTIVE: OBJECTIVE: ASSESSMENT AND PLAN:
[2020-03-13 15:38] VITALS: BP 126/79; PULSE 67; TEMP 98.4
== END 2020-03-13 15:44 | disposition home or self-care (01) | DRG 872 ==
LOC: JER 14:41 → JERBED 18:24 → J8W 03-11 14:30
PROVIDERS: ADMIT Internal Medicine; ATTEND Internal Medicine
DX: A41.9 Sepsis, unspecified organism (principal); N39.0 Urinary tract infection, site not specified; N10 Acute pyelonephritis; N20.0 Calculus of kidney; E86.0 Dehydration; M79.7 Fibromyalgia; J45.909 Unspecified asthma, uncomplicated; B96.20 Unspecified Escherichia coli [E. coli] as the cause of diseases classified elsewhere; D64.9 Anemia, unspecified; M54.9 Dorsalgia, unspecified; R50.9 Fever, unspecified
CPT/HCPCS: 36415; 71045-TC-FY; 74176-TC; 80048; 80053; 81003; 82803; 83605; 83735; 85025; 85610; 85730; 87040; 87086; 87186; 93005; 93010; 99285-25; J0131; U0003